=== PATIENT | male | born 1965 | race Caucasian/White ===

== ENCOUNTER 2020-06-12 09:10 | Emergency (ER) | payer OTHER, SELFPAY ==
[2020-06-12 09:16] VITALS: BP 146/77; PULSE 73; RESP 14; TEMP 36.2; O2SAT 100
[2020-06-12] MEDS: TETANUS,DIPHTHERIA,AC PERTUSSIS ADULT (0.5 ML) BOOSTRIX IM (09:53)
--- NOTE | 2020-06-12 09:53 | ED.GENADULT ---
HPI - General Adult General Chief complaint: Wound/Laceration <Oleg Vargas PA-C - Last Filed: 06/12/20 10:00> Stated complaint: FINGER LAC <IVONE Park Last Filed: 06/12/20 10:00> Time Seen by Provider: 06/12/20 09:28 <Oleg Vargas PA-C - Last Filed: 06/12/20 10:00> Source: patient <IVONE Park Last Filed: 06/12/20 10:00> Mode of arrival: ambulatory <IVONE Park Last Filed: 06/12/20 10:00> Limitations: no limitations <IVONE Park Last Filed: 06/12/20 10:00> History of Present Illness HPI narrative: Patient is a 55-year-old male who presents to emergency department for evaluation of a laceration to the left index finger distal phalanx that occurred last night patient notes mild aching pain with intermittent bleeding presents in no distress is unsure as to tetanus status <Oelg Vargas PA-C - Last Filed: 06/12/20 10:00> Related Data Allergies/adverse reactions: Allergies Allergy/AdvReac Type Severity Reaction Status Date / Time neomycin Allergy Mild Verified 02/02/11 16:32 <Oleg Vargas PA-C - Last Filed: 06/12/20 10:00> Review of Systems Review of Systems: Narrative: CONSTITUTIONAL: Denies fever, chills, or sweats. SKIN: Denies rash or itching. Superficial laceration left index finger distal phalanx no erythema no swelling no drainage MUSCULOSKELETAL: Denies joint pain, or myalgia. NEUROLOGIC: Denies numbness, or weakness. <Oleg Vargas PA-C - Last Filed: 06/12/20 10:00> PMFSH Social History Social History: Social History (Updated 06/12/20 @ 09:58 by Oleg Vargas PA-C) Smoking status: Never smoker Gender identity (if verbalized by the patient): Male <IVONE Park Last Filed: 06/12/20 10:00> Exam Narrative: Exam Narrative: GENERAL: Well-appearing, well-nourished, and in no acute distress. HEAD: Normocephalic, atraumatic. EYES: PERRLA and EOMI. ENT: Nares clear, no rhinorrhea or epistaxis. Mucous membranes moist. EXTREMITIES: Normal range of motion. No edema. SKIN: Warm, dry, no rash. Linear half centimeter superficial laceration distal phalanx left index finger no erythema no swelling no other deformities noted bleeding controlled NEURO: No focal deficits. Alert and oriented x3. Neurovascularly intact PSYCH: Normal mood and affect. <IVONE Park Last Filed: 06/12/20 10:00> Course Course Emergency Course: Patient in the room tetanus updated felt appropriate for discharge no closure needed provided with reasons to return <IVONE Park Last Filed: 06/12/20 10:00> Vital Signs Vital signs: Vital Signs Temperature 36.2 C L 06/12/20 09:16 Pulse Rate 73 06/12/20 09:16 Respiratory Rate 14 06/12/20 09:16 Blood Pressure 146/77 H 06/12/20 09:16 Pulse Oximetry 100 06/12/20 09:16 Temperature 36.2 C L 06/12/20 09:16 Pulse Rate 73 06/12/20 09:16 Respiratory Rate 14 06/12/20 09:16 Blood Pressure 146/77 H 06/12/20 09:16 Pulse Oximetry 100 06/12/20 09:16 <IVONE Park Last Filed: 06/12/20 10:00> Vital Signs Temperature 36.2 C L 06/12/20 09:16 Pulse Rate 73 06/12/20 09:16 Respiratory Rate 14 06/12/20 09:16 Blood Pressure 146/77 H 06/12/20 09:16 Pulse Oximetry 100 06/12/20 09:16 Temperature 36.2 C L 06/12/20 09:16 Pulse Rate 73 06/12/20 09:16 Respiratory Rate 14 06/12/20 09:16 Blood Pressure 146/77 H 06/12/20 09:16 Pulse Oximetry 100 06/12/20 09:16 <Catherine Jin MD - Last Filed: 06/12/20 10:37> Procedures Other Procedure Procedure 1: Other Procedure: Wound cleaned with antibiotic ointment 4 x 4 placed <IVONE Park Last Filed: 06/12/20 10:00> Medical Decision Making MDM Narrative Medical decision making narrative: Patients injury or pain is consistent with musculoskeletal etiology. No signs of neurolog
== END 2020-06-12 10:39 | disposition home or self-care (01) ==
PROVIDERS: Emergency Provider Emergency Medicine; PCP Internal Medicine
DX: S61.211A Laceration without foreign body of left index finger without damage to nail, initial encounter (principal); W27.4XXA Contact with kitchen utensil, initial encounter; Z23 Encounter for immunization
CPT/HCPCS: 90471; 90715; 99282

== ENCOUNTER 2024-09-26 00:30 | Day surgery (SDC) | payer BC, SELFPAY ==
[2024-09-13 09:48] VITALS: BMI 25.8
[2024-09-26 06:47] VITALS: BP 113/84; PULSE 65; RESP 18; TEMP 36.1; O2SAT 100; BMI 24.7
[2024-09-26] MEDS: LACTATED RINGERS 1,000 ML 150 ML IV CONT (07:06)
--- NOTE | 2024-09-26 07:22 | WPDANESEPPF ---
Anes - Initial Pre Proc Eval Procedure: Operation Date: 09/26/24 08:00 Proposed Procedures p Screening Colonoscopy - Garry John MD Date/Time: 09/26/24 07:22 Surgeon: Garry John MD Pre Op Diagnosis: screening malignant neoplasm colon Patient Data Age: 59 Gender: M Height: 1.8 m Weight: 80.4 kg Last Vital Signs Temp 36.1 C L 09/26/24 06:47 Pulse 65 09/26/24 06:47 Resp 18 09/26/24 06:47 BP 113/84 09/26/24 06:47 Pulse Ox 100 09/26/24 06:47 O2 Del Method Room Air 09/26/24 06:47 Allergies Allergy/AdvReac Type Severity Reaction Status Date / Time neomycin Allergy Mild Unknown Verified 09/26/24 06:53 Home Medications ?Medication ?Instructions ?Recorded ?Confirmed ?Type emtricitabine 200 mg-tenofovir 1 tablet PO DAILY 09/13/24 09/26/24 History disoproxil fumarate 300 mg tablet ezetimibe 10 mg tablet 10 mg PO DAILY 09/13/24 09/26/24 History hydrochlorothiazide 25 mg tablet 25 mg PO DAILY 09/13/24 09/26/24 History modafinil 200 mg tablet 400 mg PO DAILY 09/13/24 09/26/24 History rosuvastatin 20 mg tablet 20 mg PO DAILY 09/13/24 09/26/24 History tadalafil 20 mg tablet 20 mg PO DAILY 09/13/24 09/13/24 History Patient hx anesthesia problems: none Family hx anesthesia problems: none Results Review: All pre-operative results and documents have been reviewed as part of the pre-operative evaluation. [facility] Past Medical History Medical History (Updated 09/26/24 @ 07:22 by Heriberto Tabor DO) GERD (gastroesophageal reflux disease) BRENNEN (obstructive sleep apnea) Social History Social History (Updated 09/26/24 @ 07:29 by Heriberto Tabor DO) Smoking status: Never smoker Alcohol intake: current Drinks per week: 5 Substance use: current Substance use type: marijuana Other substance usage details: daily Living arrangements: with roommate(s) Gender identity (if verbalized by the patient): Male Spiritual care concerns: No Anes - Eval Final PreProcedure Day of Procedure 09/26/24 07:22 Patient weight: normal Heart: regular rate and rhythm Lungs: clear to auscultation and normal air movement Airway: Mallampati scale class II Neurological: alert and oriented Last oral intake: >/= 8 hours ASA classification: III Emergent: no Anesthetic plan: proceed Anesthesia type and monitoring: general GIVS and standard monitoring Results Review: All pre-operative results and documents have been reviewed as part of the pre-operative evaluation. Informed Consent: The patient's anesthetic plan and its attendant risks and benefits were discussed with the patient/family/POA. Questions were solicited and answers provided to the satisfaction of the patient/family/POA.
--- NOTE | 2024-09-26 08:01 | PM.IMHP ---
H&P: HPI History of Present Illness Date/Time: 09/26/24 08:01 Chief Complaint: Screening colonoscopy Narrative: This is the patient's 2nd colonoscopy after 10 years. There are no GI symptoms and there is no family history of colorectal cancer. Review of Systems Review of Systems: All systems reviewed & are unremarkable except as noted in HPI and below PMFSH Past Medical History Medical History (Updated 09/26/24 @ 08:02 by Garry John MD) GERD (gastroesophageal reflux disease) BRENNEN (obstructive sleep apnea) Social History Social History (Updated 09/26/24 @ 07:29 by Heriberto Tabor DO) Smoking status: Never smoker Alcohol intake: current Drinks per week: 5 Substance use: current Substance use type: marijuana Other substance usage details: daily Living arrangements: with roommate(s) Gender identity (if verbalized by the patient): Male Spiritual care concerns: No Meds Home Medications and Allergies Home Medications ?Medication ?Instructions ?Recorded ?Confirmed ?Type emtricitabine 200 mg-tenofovir 1 tablet PO DAILY 09/13/24 09/26/24 History disoproxil fumarate 300 mg tablet ezetimibe 10 mg tablet 10 mg PO DAILY 09/13/24 09/26/24 History hydrochlorothiazide 25 mg tablet 25 mg PO DAILY 09/13/24 09/26/24 History modafinil 200 mg tablet 400 mg PO DAILY 09/13/24 09/26/24 History rosuvastatin 20 mg tablet 20 mg PO DAILY 09/13/24 09/26/24 History tadalafil 20 mg tablet 20 mg PO DAILY 09/13/24 09/13/24 History Allergies Allergy/AdvReac Type Severity Reaction Status Date / Time neomycin Allergy Mild Unknown Verified 09/26/24 06:53 Vital Signs Vital Signs - 24 hr 09/26/24 06:47 Temperature 96.9 F L Pulse Rate 65 Respiratory Rate 18 Blood Pressure 113/84 Pulse Oximetry 100 Oxygen Delivery Room Air Exam Const: General: cooperative and healthy appearing Resp: Effort & Inspection: normal respiratory effort and able to speak in complete sentences Auscultation: clear to auscultation bilaterally Cardio: Rate: regular rate Rhythm: regular rhythm GI: Inspection: normal to inspection GI Palp: No No hepatosplenomegaly present Auscultation: normal bowel sounds Rectal Exam: deferred Skin: General skin exam: normal color Psych: Appearance: grossly normal Mental Status: mental status grossly normal Assessment and Plan Assessment and plan (1) Encounter for screening colonoscopy: Code(s): Z12.11 - Encounter for screening for malignant neoplasm of colon Status: Acute Assessment and Plan: The patient is deemed a good candidate for the procedure. Consent signed. Will proceed.
[2024-09-26] MEDS: SIMETHICONE ORAL SUSPENSION 20 MG/0.3 ML 30 ML BOTTLE 0.6 ML IRRIGATION (08:17)
[2024-09-26 08:21] VITALS: BP 94/66; PULSE 56; RESP 16; O2SAT 100
[2024-09-26 08:31] VITALS: BP 116/91; PULSE 66; RESP 20; O2SAT 100
[2024-09-26 08:41] VITALS: BP 102/70; PULSE 56; RESP 14; O2SAT 100
== END 2024-09-26 08:52 | disposition home or self-care (01) ==
PROVIDERS: Visit Provider Internal Medicine Gastroenterology
PROC: 0DJD8ZZ Inspection of Lower Intestinal Tract, Via Natural or Artificial Opening Endoscopic (ICD-10-PCS; CPT 45378; principal; 2024-09-26 08:00)
DX: Z12.11 Encounter for screening for malignant neoplasm of colon (principal); F12.90 Cannabis use, unspecified, uncomplicated
CPT/HCPCS: 45378; J2003; J2704; J7120